=== PATIENT | male | born 1995 ===

== ENCOUNTER 2023-06-07 08:30 | Outpatient (CLI) | payer BC, SELFPAY | END 2023-06-07 08:31 | disposition home or self-care (01) | LOC: NFLDREF 16:06 | PROVIDERS: PCP Family Medicine; Referring Provider Family Medicine; Visit Provider Family Medicine | DX: Z00.00 Encounter for general adult medical examination without abnormal findings (principal); Z13.6 Encounter for screening for cardiovascular disorders; Z13.9 Encounter for screening, unspecified | CPT/HCPCS: 80048; 80061 ==